=== PATIENT | male | born 1970 | race Caucasian/White ===

== ENCOUNTER → 2024-11-12 10:56 | Outpatient (REF) | payer BC, SELFPAY | LOC: HWRAD 10:56 | PROVIDERS: ATTENDING PHYSICIAN Otolaryngology Facial Plastic Surgery; FAMILY PHYSICIAN Family Medicine | DX: E04.1 Nontoxic single thyroid nodule (principal); J34.2 Deviated nasal septum; G47.33 Obstructive sleep apnea (adult) (pediatric) | CPT/HCPCS: 76536 ==

== ENCOUNTER → 2025-02-05 07:17 | Outpatient (REF) | payer BC, SELFPAY ==
[2025-02-05 07:53] VITALS: BP 159/95; BP_SYST 66
== END ==
LOC: RADI 07:17
PROVIDERS: ATTENDING PHYSICIAN Otolaryngology Facial Plastic Surgery; FAMILY PHYSICIAN Family Medicine
DX: E04.2 Nontoxic multinodular goiter (principal)
CPT/HCPCS: 88173; 10005; 10006